=== PATIENT | female | born 1960 | race Caucasian/White ===

== ENCOUNTER 2020-08-31 06:19 | Inpatient (IN) | payer OTHER, SELFPAY ==
[~2020-08-31] VITALS: Ht 170.2 cm; Wt 78.0 kg
[2020-08-31 07:44] LABS: CALCIUM 9.2 mg/dL (8.5-10.1); CHLORIDE SERUM 105 mmol/L (98-107); CREATININE SERUM 1.5 mg/dL (0.6-1.0); GFR1 38 mL/min; GLUCOSE SERUM 183 mg/dL (74-106); POTASSIUM SERUM 3.7 mmol/L (3.5-5.1); SODIUM SERUM 137 mmol/L (136-145)
[2020-08-31 07:50] LABS: ALBUMIN 2.8 g/dL (3.4-5.0); ALKALINE PHOSPHATASE 140 U/L (46-116); ALT/SGPT 69 U/L (14-59); AST/SGOT 39 U/L (15-37); BILIRUBIN TOTAL 0.92 mg/dL (0.20-1.00); LACTIC DEHYDROGENASE (LDH) 218 U/L (100-190); TOTAL PROTEIN, SERUM 6.7 g/dL (6.4-8.2)
[2020-08-31 07:57] LABS: PLATELET COUNT 150 x10^3mcL (130-400); RED CELL DISTRIBUTION WIDTH 13.1 % (11.5-14.5)
[2020-08-31 08:20] LABS: C REACTIVE PROTEIN 17.4 mg/dL (<=0.9)
[2020-08-31 08:38] LABS: BASOPHIL % 0 % (0-2)
[2020-08-31 08:46] LABS: microscopic required? YES; urine erythrocyte 3+ (NEGATIVE)
[2020-08-31] MEDS ORDERED: AMBIEN5 MG PO (11:33)
[2020-08-31] MEDS ORDERED: KLONOPIN1 MG PO (11:33)
[2020-08-31] MEDS ORDERED: LYRICA200 MG PO (11:33)
[2020-08-31 12:14] VITALS: BP 124/57
[2020-08-31 12:27] VITALS: BP 99/55
[2020-08-31 13:44] VITALS: BP 89/50
[2020-08-31 15:22] VITALS: BP 106/69
[2020-08-31] MEDS ORDERED: LITHOBID300 MG PO (17:17)
[2020-08-31] MEDS ORDERED: RISPERDAL2 M1 PO (17:18)
[2020-08-31 18:04] VITALS: Ht 170.2 cm; Wt 78.0 kg
[2020-08-31 18:35] VITALS: BP 106/61
[2020-08-31 20:38] VITALS: BP 119/63
[2020-09-01 06:27] VITALS: BP 104/61
[2020-09-01 09:19] VITALS: BP 128/65
[2020-09-01 09:27] LABS: BASOPHIL % 0.2 % (0-2); PLATELET COUNT 156 x10^3mcL (130-400); RED CELL DISTRIBUTION WIDTH 13.2 % (11.5-14.5)
[2020-09-01 14:30] VITALS: BP 117/66
[2020-09-01 16:42] VITALS: BP 122/79
[2020-09-01 17:52] VITALS: BP 112/61
[2020-09-01 22:03] VITALS: BP 119/69
[2020-09-02 05:21] VITALS: BP 102/62
[2020-09-02 07:13] LABS: BASOPHIL % 0.2 % (0-2); PLATELET COUNT 185 x10^3mcL (130-400); RED CELL DISTRIBUTION WIDTH 12.9 % (11.5-14.5)
[2020-09-02 07:26] LABS: CALCIUM 8.2 mg/dL (8.5-10.1); CARBON DIOXIDE 22.8 mmol/L (21-32); CHLORIDE SERUM 106 mmol/L (98-107); CREATININE SERUM 0.8 mg/dL (0.6-1.0); GFR1 > 60 mL/min; GLUCOSE SERUM 100 mg/dL (74-106); MAGNESIUM 2.5 mg/dL (1.8-2.4); POTASSIUM SERUM 3.9 mmol/L (3.5-5.1); SODIUM SERUM 138 mmol/L (136-145)
[2020-09-02 07:52] VITALS: BP 106/61
[2020-09-02 11:49] VITALS: BP 98/53
[2020-09-02] MEDS ORDERED: CEF250 PO (13:52)
[2020-09-02] MEDS ORDERED: CIPRO500 MG PO (15:45)
[2020-09-02 15:58] VITALS: BP 114/56
== END 2020-09-02 16:23 | disposition home or self-care (01) | DRG 872 ==
LOC: ED 06:19 → DU 09:24
PROVIDERS: Emergency Medicine; Internal Medicine Pulmonary Disease; ADMIT Internal Medicine; ATTEND Internal Medicine
DX: A41.9 Sepsis, unspecified organism (principal); N17.9 Acute kidney failure, unspecified; N12 Tubulo-interstitial nephritis, not specified as acute or chronic; F31.9 Bipolar disorder, unspecified; R65.20 Severe sepsis without septic shock; J20.9 Acute bronchitis, unspecified; F17.210 Nicotine dependence, cigarettes, uncomplicated; Z20.828 Contact with and (suspected) exposure to other viral communicable diseases; B96.20 Unspecified Escherichia coli [E. coli] as the cause of diseases classified elsewhere; Z90.49 Acquired absence of other specified parts of digestive tract
CPT/HCPCS: 36600; 83880; 85378; 87804; 94150; G0378; J0696; J1885; J2405; J7030; J7042; J7060; U0003